=== PATIENT | male | born 1960 | race Caucasian/White ===

== ENCOUNTER 2017-05-02 13:30 | Emergency (ER) | payer BC ==
--- NOTE | 2017-05-02 14:19 | EDM.PDOC ---
ED HPI GENERAL MEDICAL PROBLEM - General Chief Complaint: Chest Pain Stated Complaint: CHEST PAIN Time Seen by Provider: 05/02/17 14:13 Source of Information: Reports: Patient History Limitations: Reports: No Limitations - History of Present Illness INITIAL COMMENTS - FREE TEXT/NARRATIVE: 56-year-old male presents to the ED with central chest precordial pain for a month. States like a deep heavy squeezing his central chest. 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 Pain is more or less present most of the time but at other times is more severe than others. This was the case today became more intense and started to radiate down his left medial arm in his biceps distribution i.e. the costochondral nerve distribution. This is what brought him to the ED. He denies cough or sputum production he denies fever or chills. No chest wall injury recently. Has had a previous sternal fracture steer wrestling in the past. Patient does have severe Gastroesophageal reflux disease by history using Prilosec daily and Tums and Rolaids. He often wakes up in the night with brash water in his mouth and throat suggesting hiatal hernia with free reflux. Occasionally gets some relief with burping and belching. Onset: Other Duration: Week(s):, Chronic Location: Reports: Chest (Rather chronic problem is had central chest precordial discomfort for over a month just got worse today. Left precordial mid chest. Rate), Radiates to (S pain radiated into the left upper extremity medial aspect into the biceps muscle distribution) Quality: Reports: Ache Severity: Moderate Improves with: Reports: None Worsens with: Reports: None Context: Denies: Activity, Exercise, Lifting, Sick Contact, Trauma, Other Associated Symptoms: Reports: Chest Pain, Other (Does have a lot of GERD.). Denies: No Other Symptoms, Confusion, Cough, cough w sputum, Diaphoresis, Fever/ Chills, Headaches, Loss of Appetite, Malaise, Nausea/Vomiting, Rash, Seizure, Shortness of Breath, Syncope, Weakness Treatments PEGGER DOBBY LOOMS: Reports: Other (see below) (Does use a lot of Tums and Rolaids.) Chest Pain Score (Numeric/FACES): 4 - Related Data Allergies Allergy/AdvReac Type Severity Reaction Status Date / Time venom-honey bee Allergy Swelling Verified 05/02/17 13:33 [bee venom (honey bee)] Home Meds: Home Meds Empagliflozin [Jardiance] 10 mg PO DAILY 05/02/17 [History] Glimepiride 1 mg PO DAILY 05/02/17 [History] Losartan Potassium [Cozaar] 50 mg PO DAILY 05/02/17 [History] Meloxicam 15 mg PO 10 #10 tablet 05/02/17 [Rx] Rosuvastatin Calcium 20 mg PO DAILY 05/02/17 [History] SitaGLIPtin [Januvia] 100 mg PO DAILY 05/02/17 [History] metFORMIN HCl [Metformin HCl] 1,000 mg PO BID 05/02/17 [History] predniSONE [Deltasone] 20 mg PO ASDIRECTED #15 tablet 05/02/17 [Rx] Past Medical History Cardiovascular History: Reports: High Cholesterol, Hypertension Gastrointestinal History: Reports: GERD (Severe GERD with reflux during the night with brash water in his mouth and throat once or twice weekly.), Hiatal Hernia (Suspect but not proven) Endocrine/Metabolic History: Reports: Diabetes, Type II Social & Family History - Tobacco Use Smoking Status *Q: Former Smoker Used Tobacco, but Quit: Yes Month/Year Tobacco Last Used: February - Recreational Drug Use Recreational Drug Use: No - Living Situation & Occupation Living situation: Reports: Occupation: Employed (Self-employed rancher.) ED [facility] GENERAL - Review of Systems Review Of Systems: See Below Constitutional: Reports: No Symptoms HEENT: Reports: No Symptoms Respiratory: Denies: Shortness of Breath, Wheezing, Pleuritic Chest Pain, Cough , Sputum, Hemoptysis, Other Cardiovascular: Reports: Chest Pain, Blood Pressure Problem, Palpitations ( Occasional is aware of palpitations with short runs of fluttering in his chest.) . Denies: No Symptoms, Claudication, Dyspnea on Exertion (See history of present illness), Edema, Lightheadedness, Orthopnea Endocrine: Reports: No Symptoms GI/Abdominal: Reports: Other (Severe GERD by history having to take Prilosec daily and Tums and Rolaids very frequently. Occasionally awakes with reflux in his mouth and throat during sleep. Does sleep on inclined bed. This is helped a good deal.). Denies: Constipation, Difficulty Swallowing, Distension, Flatus, Hematemesis, Hematochezia, Melena, Mucous in Stool, Nausea, Stool Incontinence, Vomiting : Reports: Frequency Musculoskeletal: Reports: Back Pain, Joint Pain Skin: Reports: No Symptoms (Knees hips at times) Neurological: Reports: No Symptoms Psychiatric: Reports: No Symptoms Hematologic/Lymphatic: Reports: No Symptoms Immunologic: Reports: No Symptoms ED EXAM, GENERAL - Physical Exam Exam: See Below Exam Limited By: No Limitations General Appearance: Alert, WD/WN, Anxious (Mildly anxious.) Respiratory/Chest: No Respiratory Distress, Lungs Clear, Normal Breath Sounds, No Accessory Muscle Use, Respiratory Distress, Other (Patient does exhibit chest wall tenderness particularly the fourth rib left side midclavicular line to the left anterior axillary line. Rhythm is mildly tender as well. No pain on compression of the right chest wall.) Cardiovascular: Normal Peripheral Pulses, Regular Rate, Rhythm, No Edema, No Gallop, No Murmur GI/Abdominal: Normal Bowel Sounds, Soft, Non-Tender, No Organomegaly, No Abnormal Bruit, No Mass, Pelvis Stable, Other (Does have mild diastases recti inferior to the xiphoid process.) Back Exam: Normal Inspection, Full Range of Motion. No: CVA Tenderness (L), CVA Tenderness (R) Extremities: Normal Inspection, Normal Range of Motion, Non-Tender, No Pedal Edema Neurological: Alert, Oriented, CN II-XII Intact, Normal Cognition Psychiatric: Normal Affect, Normal Mood Skin Exam: Warm, Dry, Intact, Normal Color, No Rash EKG INTERPRETATION EKG Date: 05/02/17 Time: 13:40 Rhythm: NSR Rate (Beats/Min): 92 Tranquillity: Normal P-Wave: Present QRS: Other (Early R-wave transition. Consider septal hypertrophy pattern.) ST-T: Normal QT: Normal EKG Interpretation Comments: Borderline ECG. Course - Vital Signs Last Recorded V/S: Last Vital Signs Temp 36.4 C 05/02/17 13:34 Pulse 92 05/02/17 13:34 Resp 16 05/02/17 13:34 BP 145/89 H 05/02/17 13:34 Pulse Ox 96 05/02/17 13:34 - Orders/Labs/Meds Orders: Active Orders 24 hr Category Date Time Status EKG Documentation Completion [RC] STAT Care 05/02/17 14:16 Active Labs: Laboratory Tests 05/02/17 05/02/17 05/02/17 Range/Units 13:45 13:45 13:45 WBC 4.94 (4.23-9.07) K/mm3 RBC 5.08 (4.63-6.08) M/mm3 Hgb 15.8 (13.7-17.5) gm/L Hct 47.7 (40.1-51.0) % MCV 93.9 H (79.0-92.2) fl MCH 31.1 (25.7-32.2) pg MCHC 33.1 (32.2-35.5) g/dl RDW Std Deviation 40.5 (35.1-43.9) fL Plt Count 186 (163-337) K/mm3 MPV 12.1 (9.4-12.3) fl Neutrophils % (Manual) 43 (40-60) % Band Neutrophils % 0 (0-10) % Lymphocytes % (Manual) 42 H (20-40) % Atypical Lymphs % 0 % Monocytes % (Manual) 12 H (2-10) % Eosinophils % (Manual) 3 (0.8-7.0) % Basophils % (Manual) 0 L (0.2-1.2) Platelet Estimate Adequate Plt Morphology Comment Normal RBC Morph Comment Normal ESR 5 (0-15) mm/hr Sodium 139 (136-145) mEq/L Potassium 3.9 (3.5-5.1) mEq/L Chloride 104 (98-107) mEq/L Carbon Dioxide 25 (21-32) mEq/L Anion Gap 13.9 (5-15) BUN 13 (7-18) mg/dL Creatinine 0.9 (0.7-1.3) mg/dL Est Cr Clr Drug Dosing 95.29 mL/min Estimated GFR (MDRD) > 60 (>60) mL/min BUN/Creatinine Ratio 14.4 (14-18) Glucose 160 H (74-106) mg/dL Calcium 9.4 (8.5-10.1) mg/dL Total Bilirubin 1.1 H (0.2-1.0) mg/dL AST 29 (15-37) U/L ALT 69 H (16-63) U/L Alkaline Phosphatase 106 (46-116) U/L CK-MB (CK-2) 1.2 (0-3.6) ng/ml Troponin I < 0.017 (0.00-0.056) ng/mL C-Reactive Protein < 0.2 (<1.0) mg/dL Total Protein 7.7 (6.4-8.2) g/dl Albumin 4.4 (3.4-5.0) g/dl Globulin 3.3 gm/dL Albumin/Globulin Ratio 1.3 (1-2) TSH 3rd Generation (0.358-3.74) uIU/mL 05/02/17 Range/Units 13:45 WBC (4.23-9.07) K/mm3 RBC (4.63-6.08) M/mm3 Hgb (13.7-17.5) gm/L Hct (40.1-51.0) % MCV (79.0-92.2) fl MCH (25.7-32.2) pg MCHC (32.2-35.5) g/dl RDW Std Deviation (35.1-43.9) fL Plt Count (163-337) K/mm3 MPV (9.4-12.3) fl Neutrophils % (Manual) (40-60) % Band Neutrophils % (0-10) % Lymphocytes % (Manual) (20-40) % Atypical Lymphs % % Monocytes % (Manual) (2-10) % Eosinophils % (Manual) (0.8-7.0) % Basophils % (Manual) (0.2-1.2) Platelet Estimate Plt Morphology Comment RBC Morph Comment ESR (0-15) mm/hr Sodium (136-145) mEq/L Potassium (3.5-5.1) mEq/L Chloride (98-107) mEq/L Carbon Dioxide (21-32) mEq/L Anion Gap (5-15) BUN (7-18) mg/dL Creatinine (0.7-1.3) mg/dL Est Cr Clr Drug Dosing mL/min Estimated GFR (MDRD) (>60) mL/min BUN/Creatinine Ratio (14-18) Glucose (74-106) mg/dL Calcium (8.5-10.1) mg/dL Total Bilirubin (0.2-1.0) mg/dL AST (15-37) U/L ALT (16-63) U/L Alkaline Phosphatase (46-116) U/L CK-MB (CK-2) (0-3.6) ng/ml Troponin I (0.00-0.056) ng/mL C-Reactive Protein (<1.0) mg/dL Total Protein (6.4-8.2) g/dl Albumin (3.4-5.0) g/dl Globulin gm/dL Albumin/Globulin Ratio (1-2) TSH 3rd Generation 2.266 (0.358-3.74) uIU/mL - Radiology Interpretation Free Text/Narrative:: 56-year-old male presents to the ED with a history of left precordial chest discomfort like a deep squeezing aching discomfort for the better part of a month. It is not worsened by exertion. No associated cough or sputum production. No hemoptysis. Today the pain intensified a bit and started to radiate down his left arm in the biceps muscle distribution this precipitated ED visit. Examination reveals lungs to be clear. Heart is sinus. ECG is normal sinus rhythm with no signs of ischemia. There is some suggestion of septal hypertrophy pattern possibly due to poorly controlled blood pressure. History of severe reflux disease by the patient with brash water in his mouth and throat during sleep fairly frequently. He therefore was advised to pursue fundoplication. I would recommend Dr. Quintanilla at [facility] in [place] in this regard. Patient lives on and a lot of Tums and Rolaids as well as Prilosec daily. Examination reveals chest wall pain in the distribution of third fourth ribs midclavicular line left side. Pain follows the distribution of costochondral nerve into his left medial biceps. Plan 1 view chest x-ray routine lab work to be done to include cardiac markers sedimentation rate and CRP. - Re-Assessments/Exams Free Text/Narrative Re-Assessment/Exam: 05/02/17 14:53 portal chest x-ray one view is been completed. Cardiac silhouette appears to be within normal limits. Visualized portions the lungs are clear. Ribs appear to be intact and normal. 05/02/17 15:17 Labs reveal an elevated white count of 11.95 with 62% neutrophils no bands reported. Hemoglobin is 15.5 with hematocrit of 46.1. Is 141 with a potassium of 3.7. Chloride 104 with a bicarbonate of 22. Anion gap is markedly elevated at 18.7. BUN is 12 with a creatinine of 1.0. GFR is greater than 60. Glucose is 112. Calcium normal at 9.4. Liver function is normal C-reactive protein mildly elevated at 2.1 lipase normal at 99. . I.e. all labs are essentially normal. Patient reassured in this regard. He will be placed on meloxicam 15 mg once daily for the next 10 days to relieve pain and inflammation with Deltasone 20 mg a.m. and p.m. for 5 days and one in the morning for 5 more days to relieve inflammation and pain. Departure - Departure Time of Disposition: 15:26 Disposition: Home, Self-Care 01 Condition: Fair Clinical Impression: Non-cardiac chest pain, Anterior chest wall pain Prescriptions: Meloxicam 15 mg PO 10 #10 tablet predniSONE [Deltasone] 20 mg PO ASDIRECTED #15 tablet Instructions: Chest Wall Pain, [id number] Referrals: Tito Mejia MD [Primary Care Provider] - Forms: ED Department Discharge Additional Instructions: Evaluation in the emergency room today in regards to left precordial chest discomfort that has been present off and on for 3 weeks or more. It became worse today and radiate anterior left upper extremity the distribution of the biceps muscle. Examination reveals pain localized to the anterior chest wall particularly in the ribs 3 and 4 on the left side. The fourth rib has a nerve underneath it that traverses into the upper arm therefore this pain is referred from the chest wall until you're arm. Lungs are clear heart was normal ECG was normal chest x-ray was normal and lab tests particular cardiac markers were completely normal. Pain is coming from the anterior chest wall to deep within the muscles between the ribs. Times rib lining itself can become inflamed and cause similar type pain. Treatment is therefore time to heal. Suggest a trial of anti-inflammatory meloxicam 15 mg once daily for 10 days and Deltasone 20 mg with breakfast and supper for 5 days and 1 tablet in the morning only for 5 days to relieve further inflammation. Follow-up with personal doctor if chest pain continues or fails to resolve in the next 10-12 days time. In regards to your severe gastroesophageal reflux disease I would encourage you to seek surgical management by way of a surgical procedure called a fundoplication. I would suggest Dr. Quintanilla at [facility] in [place] in this regard. - My Orders Last 24 Hours: My Active Orders 05/02/17 14:16 EKG Documentation Completion [RC] STAT - Assessment/Plan Last 24 Hours: My Active Orders 05/02/17 14:16 EKG Documentation Completion [RC] STAT
--- NOTE | 2017-05-02 15:05 | CR ---
Chest: Portable view of the chest was obtained. Comparison: No prior chest x-ray. Heart size and mediastinum are normal. Lungs are clear. Bony structures are grossly intact. Impression: 1. Nothing acute is seen on portable chest x-ray. Diagnostic code #1
== END 2017-05-02 16:00 | disposition home or self-care (01) ==
LOC: JD.ED 13:30
DX: R07.89 Other chest pain (principal); E78.00 Pure hypercholesterolemia, unspecified; I10 Essential (primary) hypertension; K21.9 Gastro-esophageal reflux disease without esophagitis; E11.9 Type 2 diabetes mellitus without complications; Z79.899 Other long term (current) drug therapy; Z91.030 Bee allergy status; Z87.891 Personal history of nicotine dependence; Z79.84 Long term (current) use of oral hypoglycemic drugs
CPT/HCPCS: 36415; 71045; 71045-26; 80053; 82553; 84443; 84484; 85025; 85652; 86140; 93005; 93010; 99285; 99285-25

== ENCOUNTER 2020-12-29 19:00 | Emergency (ER) | payer BC ==
--- NOTE | 2020-12-29 19:49 | EDM.PDOC ---
ED HPI GENERAL MEDICAL PROBLEM - General Chief Complaint: Respiratory Problem Stated Complaint: FEVER/CONGESTED/BODY ACHES Time Seen by Provider: 12/29/20 19:30 Source of Information: Reports: Patient History Limitations: Reports: No Limitations - History of Present Illness INITIAL COMMENTS - FREE TEXT/NARRATIVE: Patient is a 60-year-old male presented to the emergency room with a complaint of fevers, body aches, fatigue. Patient has a past medical history of obesity, diabetes and hypertension. Patient states he is felt this way since yesterday. He does report close contact with Covid positive person several days ago. States he had a fever of 102.0 today. He does have an appetite but does have diarrhea as well. Denies any abdominal pain or urinary symptoms. Has some mild shortness of breath and dry cough. Patient has been using Tylenol with some relief. Patient did receive Covid vaccine as well as booster. He also received his flu shot. He has not previously tested positive for COVID-19. Generalized Pain Score (Numeric/FACES): 5 - Related Data Allergies Allergy/AdvReac Type Severity Reaction Status Date / Time venom-honey bee Allergy Swelling Verified 12/29/20 19:24 [bee venom (honey bee)] Home Meds: Home Meds Empagliflozin [Jardiance] 10 mg PO DAILY 05/02/17 [History] Glimepiride 1 mg PO DAILY 05/02/17 [History] Losartan Potassium [Cozaar] 50 mg PO DAILY 05/02/17 [History] Rosuvastatin Calcium 20 mg PO DAILY 05/02/17 [History] SitaGLIPtin [Januvia] 100 mg PO DAILY 05/02/17 [History] metFORMIN HCl [Metformin HCl] 1,000 mg PO BID 05/02/17 [History] Meloxicam 15 mg PO DAILY 12/29/20 [History] Past Medical History Cardiovascular History: Reports: High Cholesterol, Hypertension Gastrointestinal History: Reports: GERD (Severe GERD with reflux during the night with brash water in his mouth and throat once or twice weekly.), Hiatal Hernia (Suspect but not proven) Endocrine/Metabolic History: Reports: Diabetes, Type II Social & Family History - Living Situation & Occupation Living situation: Reports: Occupation: Employed (Self-employed rancher.) ED ROS GENERAL - Review of Systems Review Of Systems: See Below Free Text/Narrative/Comment: In addition to that documented in the HPI above, the additional ROS was obtained: Constitutional: Per HPI Eyes: Denies vision changes ENMT: Denies sore throat CV: Denies chest pain Resp: Per HPI GI: Positive for diarrhea, negative for vomiting : Denies painful urination MSK: Denies recent trauma Skin: Denies new rashes Neuro: Denies new numbness or tingling or weakness Endocrine: Denies unexpected weight loss Heme: Denies bleeding disorders ED EXAM, GENERAL - Physical Exam Exam: See Below Free Text/Narrative:: I have reviewed the triage vital signs Const: Well nourished, well developed, appears stated age Eyes: Extraocular movements intact, no conjunctival injection HENT: No signs of trauma or swelling, Neck supple without meningismus CV: Regular Rate Rhythm, Warm, well-perfused extremities RESP: Unlabored respiratory effort MSK: No gross deformities appreciated Skin: Warm, dry. No rashes Neuro: Alert, customer sales distributor II-XII grossly intact. Sensation and motor function of extremities grossly intact. Psych: Appropriate mood and affect. Course - Vital Signs Last Recorded V/S: Last Vital Signs Temp 37.0 C 12/29/20 19:19 Pulse 110 H 12/29/20 19:19 Resp 20 12/29/20 19:19 BP 147/85 H 12/29/20 19:19 Pulse Ox 98 12/29/20 19:19 - Orders/Labs/Meds Orders: Active Orders 24 hr Category Date Time Status Vital Signs [RC] Q15M Care 12/29/20 20:40 Active EPINEPHrine [Adrenalin] Med 12/29/20 20:40 Active 0.3 mg IM ASDIRECTED PRN Famotidine [Pepcid] Med 12/29/20 20:40 Active 20 mg IVPUSH ASDIRECTED PRN Sodium Chloride 0.9% [Saline Flush] Med 12/29/20 20:45 Active 30 ml FLUSH ASDIRECTED diphenhydrAMINE [Benadryl] Med 12/29/20 20:40 Active 50 mg IVPUSH ASDIRECTED PRN methylPREDNISolone Sod Succ [Solu-MEDROL] Med 12/29/20 20:40 Active 125 mg IVPUSH ASDIRECTED PRN Medication Orders Diphenhydramine HCl (Diphenhydramine 50 Mg/Ml Sdv) 50 mg IVPUSH ASDIRECTED PRN PRN Reason: hypersensitivity reaction Epinephrine HCl (Epinephrine 1 Mg/Ml Sdv) 0.3 mg IM ASDIRECTED PRN PRN Reason: hypersensitivity reaction Famotidine (Famotidine 20 Mg/2 Ml Sdv) 20 mg IVPUSH ASDIRECTED PRN PRN Reason: hypersensitivity reaction Methylprednisolone Sodium Succinate (Methylprednisolone Sodium Succinate 125 Mg/2 Ml Sdv) 125 mg IVPUSH ASDIRECTED PRN PRN Reason: hypersensitivity reaction Sodium Chloride (Sodium Chloride 0.9% 10 Ml Syringe) 30 ml FLUSH ASDIRECTED SHAD Labs: Laboratory Tests 12/29/20 12/29/20 12/29/20 Range/Units 19:40 19:40 19:40 WBC 4.66 (4.23-9.07) K/mm3 RBC 5.00 (4.63-6.08) M/mm3 Hgb 15.8 (13.7-17.5) gm/dl Hct 48.5 (40.1-51.0) % MCV 97.0 H D (79.0-92.2) fl MCH 31.6 (25.7-32.2) pg MCHC 32.6 (32.2-35.5) g/dl RDW Std Deviation 42.5 (35.1-43.9) fL Plt Count 183 (163-337) K/mm3 MPV 11.4 (9.4-12.3) fl Neut % (Auto) 52.7 (34.0-67.9) % Lymph % (Auto) 18.9 L (21.8-53.1) % Aurora % (Auto) 23.2 H (5.3-12.2) % Eos % (Auto) 3.0 (0.8-7.0) Baso % (Auto) 1.1 (0.1-1.2) % Neut # (Auto) 2.46 (1.78-5.38) K/mm3 Lymph # (Auto) 0.88 L (1.32-3.57) K/mm3 Aurora # (Auto) 1.08 H (0.30-0.82) K/mm3 Eos # (Auto) 0.14 (0.04-0.54) K/mm3 Baso # (Auto) 0.05 (0.01-0.08) K/mm3 Manual Slide Review Abnormal smear PT 10.3 (9.7-12.0) SECONDS INR 0.93 Sodium 134 L (136-145) mEq/L Potassium 3.8 (3.5-5.1) mEq/L Chloride 101 (98-107) mEq/L Carbon Dioxide 25 (21-32) mEq/L Anion Gap 11.8 (5-15) BUN 14 (7-18) mg/dL Creatinine 1.0 (0.7-1.3) mg/dL Est Cr Clr Drug Dosing 81.58 mL/min Estimated GFR (MDRD) > 60 (>60) mL/min BUN/Creatinine Ratio 14.0 (14-18) Glucose 284 H (70-99) mg/dL Lactic Acid (0.4-2.0) mmol/L Calcium 8.9 (8.5-10.1) mg/dL Total Bilirubin 0.5 (0.2-1.0) mg/dL AST 18 (15-37) U/L ALT 47 (16-63) U/L Alkaline Phosphatase 94 (46-116) U/L C-Reactive Protein 2.4 H* (<1.0) mg/dL Total Protein 7.4 (6.4-8.2) g/dl Albumin 3.8 (3.4-5.0) g/dl Globulin 3.6 gm/dL Albumin/Globulin Ratio 1.1 (1-2) Influenza Type A RNA (NEGATIVE) Influenza Type B RNA (NEGATIVE) SARS-CoV-2 RNA (GAB) (NEGATIVE) 12/29/20 12/29/20 Range/Units 19:40 19:51 WBC (4.23-9.07) K/mm3 RBC (4.63-6.08) M/mm3 Hgb (13.7-17.5) gm/dl Hct (40.1-51.0) % MCV (79.0-92.2) fl MCH (25.7-32.2) pg MCHC (32.2-35.5) g/dl RDW Std Deviation (35.1-43.9) fL Plt Count (163-337) K/mm3 MPV (9.4-12.3) fl Neut % (Auto) (34.0-67.9) % Lymph % (Auto) (21.8-53.1) % Aurora % (Auto) (5.3-12.2) % Eos % (Auto) (0.8-7.0) Baso % (Auto) (0.1-1.2) % Neut # (Auto) (1.78-5.38) K/mm3 Lymph # (Auto) (1.32-3.57) K/mm3 Aurora # (Auto) (0.30-0.82) K/mm3 Eos # (Auto) (0.04-0.54) K/mm3 Baso # (Auto) (0.01-0.08) K/mm3 Manual Slide Review PT (9.7-12.0) SECONDS INR Sodium (136-145) mEq/L Potassium (3.5-5.1) mEq/L Chloride (98-107) mEq/L Carbon Dioxide (21-32) mEq/L Anion Gap (5-15) BUN (7-18) mg/dL Creatinine (0.7-1.3) mg/dL Est Cr Clr Drug Dosing mL/min Estimated GFR (MDRD) (>60) mL/min BUN/Creatinine Ratio (14-18) Glucose (70-99) mg/dL Lactic Acid 2.2 H* (0.4-2.0) mmol/L Calcium (8.5-10.1) mg/dL Total Bilirubin (0.2-1.0) mg/dL AST (15-37) U/L ALT (16-63) U/L Alkaline Phosphatase (46-116) U/L C-Reactive Protein (<1.0) mg/dL Total Protein (6.4-8.2) g/dl Albumin (3.4-5.0) g/dl Globulin gm/dL Albumin/Globulin Ratio (1-2) Influenza Type A RNA Negative (NEGATIVE) Influenza Type B RNA Negative (NEGATIVE) SARS-CoV-2 RNA (GAB) Positive H (NEGATIVE) Meds: Medications Generic Name Dose Route Start Last Admin Trade Name Freq PRN Reason Stop Dose Admin Diphenhydramine HCl 50 mg 12/29/20 20:40 Diphenhydramine 50 Mg/Ml Sdv IVPUSH ASDIRECTED PRN hypersensitivity reaction Epinephrine HCl 0.3 mg 12/29/20 20:40 Epinephrine 1 Mg/Ml Sdv IM ASDIRECTED PRN hypersensitivity reaction Famotidine 20 mg 12/29/20 20:40 Famotidine 20 Mg/2 Ml Sdv IVPUSH ASDIRECTED PRN hypersensitivity reaction Methylprednisolone Sodium Succinate 125 mg 12/29/20 20:40 Methylprednisolone Sodium Succinate 125 Mg/2 Ml Sdv IVPUSH ASDIRECTED PRN hypersensitivity reaction Sodium Chloride 30 ml 12/29/20 20:45 Sodium Chloride 0.9% 10 Ml Syringe FLUSH ASDIRECTED SHAD Discontinued Medications Generic Name Dose Route Start Last Admin Trade Name Freq PRN Reason Stop Dose Admin CASIRIVIMAB/IMDEVIMAB 10 ml/ 110 mls @ 220 mls/hr 12/29/20 20:40 12/29/20 21:13 Sodium Chloride IV 12/29/20 21:09 220 mls/hr ONETIME ONE Administration Departure - Departure Time of Disposition: 22:04 Disposition: Home, Self-Care 01 Clinical Impression: COVID-19 - Discharge Information Referrals: Tito Mejia MD [Primary Care Provider] - Forms: ED Department Discharge Sepsis Event Note (ED) - Evaluation Sepsis Screening Result: No Definite Risk - Focused Exam Vital Signs: Vital Signs Temp Pulse Resp BP Pulse Ox 12/29/20 19:19 37.0 C 110 H 20 147/85 H 98 - My Orders Last 24 Hours: My Active Orders 12/29/20 20:40 Vital Signs [RC] Q15M EPINEPHrine [Adrenalin] 0.3 mg IM ASDIRECTED PRN Famotidine [Pepcid] 20 mg IVPUSH ASDIRECTED PRN diphenhydrAMINE [Benadryl] 50 mg IVPUSH ASDIRECTED PRN methylPREDNISolone Sod Succ [Solu-MEDROL] 125 mg IVPUSH ASDIRECTED PRN 12/29/20 20:45 Sodium Chloride 0.9% [Saline Flush] 30 ml FLUSH ASDIRECTED - Assessment/Plan Last 24 Hours: My Active Orders 12/29/20 20:40 Vital Signs [RC] Q15M EPINEPHrine [Adrenalin] 0.3 mg IM ASDIRECTED PRN Famotidine [Pepcid] 20 mg IVPUSH ASDIRECTED PRN diphenhydrAMINE [Benadryl] 50 mg IVPUSH ASDIRECTED PRN methylPREDNISolone Sod Succ [Solu-MEDROL] 125 mg IVPUSH ASDIRECTED PRN 12/29/20 20:45 Sodium Chloride 0.9% [Saline Flush] 30 ml FLUSH ASDIRECTED Assessment:: Patient is a 60-year-old male presenting with signs and symptoms consistent with COVID-19 infection. His Covid test was positive here. Otherwise, mild elevation of CRP as well as mild elevation of lactic acid. Do not suspect sepsis at this time. No IV fluids given. However, he is a candidate for an tibiotic infusion which will be completed here in the emergency room. He is not hypoxic or in respiratory distress. Patient given education and discharged in stable condition.
--- NOTE | 2020-12-29 20:31 | CR ---
Chest: Frontal view of the chest was obtained. Comparison: Prior chest x-ray of 05/02/17. Heart size and mediastinum are within normal limits. Small portion of the right lateral costophrenic angle is not included on this study. Slight linear density is noted within the right upper lung compatible with minimal atelectasis. Lungs otherwise are clear. No discrete osseous abnormality is appreciated. Impression: 1. Slight atelectasis within the right upper lung. 2. Small portion of the right lateral costophrenic angle is not included on the study. 3. Nothing acute is otherwise seen on frontal chest x-ray. Diagnostic code #2
[2020-12-29 20:39] LABS: CORONAVIRUS COVID-19 NAA POSITIVE (NEGATIVE)
[2020-12-29] MEDS ORDERED: EPINEPHrine 1 MG/ML SDV IM PRN (20:40)
[2020-12-29] MEDS ORDERED: diphenhydrAMINE 50 MG/ML SDV IVPUSH PRN (20:40)
[2020-12-29] MEDS ORDERED: Famotidine 20 MG/2 ML SDV IVPUSH PRN (20:40)
[2020-12-29] MEDS ORDERED: methylPREDNISolone Sodium Succinate 125 MG/2 ML SDV IVPUSH PRN (20:40)
[2020-12-29] MEDS ORDERED: Sodium Chloride 0.9% 10 ML Syringe FLUSH SCH (20:45)
== END 2020-12-29 22:20 | disposition home or self-care (01) ==
LOC: JD.ED 19:00
DX: U07.1 COVID-19 (principal); E78.00 Pure hypercholesterolemia, unspecified; I10 Essential (primary) hypertension; E11.9 Type 2 diabetes mellitus without complications; K21.9 Gastro-esophageal reflux disease without esophagitis; Z91.030 Bee allergy status; Z79.899 Other long term (current) drug therapy; Z79.84 Long term (current) use of oral hypoglycemic drugs
CPT/HCPCS: 0240U; 36415; 71045; 80053; 83605; 85025; 85610; 86140; 99283; M0243; Q0243